=== PATIENT | female | born 1995 | race African-American/Black ===

== ENCOUNTER 2018-02-21 02:49 | Emergency (ER) | payer OTHER ==
[~2018-02-21] VITALS: Ht 160 cm; Wt 63.5 kg
[2018-02-21 04:20] VITALS: BP 114/73
== END 2018-02-21 04:20 | disposition home or self-care (01) ==
LOC: ED 02:49
DX: K08.89 Other specified disorders of teeth and supporting structures (principal)
CPT/HCPCS: J1885

== ENCOUNTER 2018-10-15 05:15 | Emergency (ER) | payer OTHER ==
[~2018-10-15] VITALS: Ht 157.5 cm; Wt 62.6 kg
[2018-10-15 05:20] VITALS: Ht 157.5 cm; Wt 62.6 kg
[2018-10-15 05:58] VITALS: BP 99/71
== END 2018-10-15 05:58 | disposition home or self-care (01) ==
LOC: ED 05:15
DX: M77.9 Enthesopathy, unspecified (principal)
CPT/HCPCS: A4570

== ENCOUNTER 2019-08-25 00:24 | Emergency (ER) | payer BC ==
[~2019-08-25] VITALS: Ht 160 cm; Wt 67.6 kg
[2019-08-25 00:40] VITALS: BP 105/64; Ht 160 cm; Wt 67.6 kg
== END 2019-08-25 01:20 | disposition home or self-care (01) ==
LOC: ED 00:24
DX: N39.0 Urinary tract infection, site not specified (principal)